=== PATIENT | male | born 1970 | race Caucasian/White ===

== ENCOUNTER → 2019-05-23 13:26 | Outpatient (CLI) | payer BC, SELFPAY ==
--- NOTE | 2019-05-23 | DI.RAD.S_ITS ---
PROCEDURE: XR KNEE LT 3V INDICATIONS: Other chronic pain TECHNIQUE: 3 views of the knee were acquired. COMPARISON: None. FINDINGS: Bones: No fractures or dislocations. No suspicious bony lesions. Mild knee joint effusion. Soft tissues: No joint effusion. No suspicious soft tissue calcifications. IMPRESSION: Mild degenerative joint disease. Dictated by: Dario Real M.D. on 05/23/2019 at 15:08 Approved by: Dario Real M.D. on 05/23/2019 at 15:13
--- NOTE | 2019-05-23 | DI.RAD.S_ITS ---
PROCEDURE: XR HIP W PEL IF DONE LT 2V INDICATIONS: Other chronic pain TECHNIQUE: AP pelvis with lateral view(s) of the left hip(s). COMPARISON: None. FINDINGS: Bones: No fractures or dislocations. Pelvic ring appears intact. No suspicious bony lesions. Severe left hip joint degeneration. There is deformity of the left femoral head. Soft tissues: The visualized bowel gas pattern is normal. No suspicious soft tissue calcifications. IMPRESSION: 1. Severe degenerative joint disease of the left hip. 2. Deformity of left femoral head, suggesting osteonecrosis. MRI may be helpful for further evaluation Dictated by: Dario Real M.D. on 05/23/2019 at 14:59 Approved by: Dario Real M.D. on 05/23/2019 at 15:08
--- NOTE | 2019-05-23 | DI.RAD.S_ITS ---
PROCEDURE: XR LUMBAR SPINE 2-3V INDICATIONS: Other chronic pain TECHNIQUE: 3 views of the lumbar spine were acquired. COMPARISON: None. FINDINGS: Bones: 5 [id number] vertebrae are present. There is normal bony alignment. No vertebral body compression fractures. No suspicious bony lesions. There is degenerative disc disease, moderate at T11-T12 and T12-L1, and mild at T9-T10, T10-T11, L1-L2, L2-L3, L3-L4 and L4-L5. There is moderate facet arthropathy at L4-L5 and L5-S1. Soft tissues: Overlying bowel gas pattern is normal. No suspicious soft tissue calcifications. IMPRESSION: Degenerative disc and facet disease as described. Dictated by: Dario Real M.D. on 05/23/2019 at 15:51 Approved by: Dario Real M.D. on 05/23/2019 at 15:55
== END ==
PROVIDERS: Visit Provider Family Medicine Addiction Medicine
DX: G89.29 Other chronic pain (principal); M17.12 Unilateral primary osteoarthritis, left knee
CPT/HCPCS: 72100; 73502; 73562

== ENCOUNTER → 2019-05-30 15:44 | Outpatient (CLI) | payer BC, SELFPAY ==
--- NOTE | 2019-05-30 | DI.MRI.S_ITS ---
PROCEDURE: MR HIP LT WO CON INDICATIONS: Osteonecrosis, unspecified TECHNIQUE: Noncontrast coronal T1 spin echo and STIR through the bony pelvis. Coronal and axial T2 fast spin echo with fat saturation, sagittal T1 spin echo, and oblique axial T2 fast spin echo with fat saturation through the hip. COMPARISON: [facility], CR, XR HIP W PEL IF DONE LT 2V, 05/23/2019, 13:34. FINDINGS: Image quality: Excellent. Bones and joints: Bone marrow of the pelvic ring and proximal femurs show normal signal throughout except that the left femoral head and neck area. There is a characteristic defect within the subchondral cortex of the femoral head, articular surface, on the left. Sli these findings are associated with moderate right hip joint degenerative osteoarthritis, but without evidence of synchronous avascular necrosis on the right. ght offset due to mild impaction is present, best seen at the medial border of the area of avascular necrosis, depressed by approximately 1.5-2 mm. Reactive marrow space edema is present tracking into the intertrochanteric line from the subchondral femoral head. Additionally, a mild to moderate hip joint effusion is present with no definite significant sized intra-articular loose bodies. Note is made of a slight degree of edema in the overlying marrow space of the acetabulum. No acetabular fracture is present. No intraosseous lesions or fractures. There is moderate degenerative osteoarthritic joint space narrowing at the right hip joint. The visualized lower lumbar spine appears normally aligned. Tendons and ligaments: The gluteus medius and minimus tendons appear intact, without associated muscle atrophy. The nearby proximal iliotibial band also appears intact. The iliopsoas tendon appears intact, without adjacent bursal fluid collections or evidence for impingement syndrome. The origin of the hamstring tendon is intact at the ischial tuberosity, as well as the associated sacrotuberous ligament. The straight and reflected heads of the rectus femoris muscle origin appear intact, as well as the conjoint tendon. The ligamentum teres appears intact where visualized. Labrum and cartilage: The acetabular labrum appears intact in the absence of intra-articular contrast. Cartilage surface of the femoral head appears of normal thickness. The alpha angle of the femur is within normal limits at less than 55 degrees. Soft tissues: Visualized muscles demonstrate normal bulk and internal signal. Quadratus femoris muscle demonstrates no internal edema to suggest ischiofemoral impingement. The proximal sciatic neurovascular bundle appears normal adjacent to the hamstring tendons. No free pelvic fluid. Bladder wall thickness is normal. Genitourinary structures and bowel loops appear normal where visualized. IMPRESSION: Avascular necrosis pattern left femoral head with slight impaction fracture along the margins of the area of avascular necrosis on the left. The femoral neck or intertrochanteric fracture is not present, trauma is not suspected. Reactive marrow edema as discussed, reactive left hip joint effusion. Dictated by: Khris Clay M.D. on 05/30/2019 at 16:39 Approved by: Khris Clay M.D. on 05/30/2019 at 16:44
== END ==
DX: M87.852 Other osteonecrosis, left femur (principal); M84.452A Pathological fracture, left femur, initial encounter for fracture; M16.11 Unilateral primary osteoarthritis, right hip
CPT/HCPCS: 73721

== ENCOUNTER → 2019-06-16 08:17 | Outpatient (CLI) | payer BC, SELFPAY ==
[2019-06-16 08:45] LABS: Bacteria Urine None Seen
[2019-06-16 08:56] LABS: Add Manual Diff / Slide Review NO; Basophils Absolute Auto 100 /uL (0-100); Basophils Percent Auto 1.4 % (0-2); Eosinophils Absolute Auto 200 /uL (0-450); Eosinophils Percent Auto 3.7 % (2-4); Hematocrit 40.7 % (41-53); Lymphocytes Absolute Auto 2200 /uL (1100-4500); Lymphocytes Percent Auto 34.8 % (25-40); Mean Corpuscular HGB Conc 34.4 % (30-36); Mean Corpuscular Hemoglobin 30.2 PG (26-34); Mean Corpuscular Volume 87.9 fL (80-100); Monocytes Absolute Auto 600 /uL (0-900); Monocytes Percent Auto 9.8 % (3-14); Neutrophils Absolute Auto 3100 /uL (1500-7000); Neutrophils Percent Auto 50.3 % (50-75); Platelet Count 236 X10^3/uL (150-400); Red Blood Cell Count 4.64 X10^6/uL (4.5-5.9); Red Cell Distribution Width 13.8 % (11.6-14.8); White Blood Cell Count 6.2 X10^3/uL (4.5-11.0)
[2019-06-16 09:07] LABS: BUN Creatinine Ratio 21.8 (6-22); Blood Urea Nitrogen 17 mg/dL (9-20); Calcium 9.8 mg/dL (8.4-10.2); Carbon Dioxide 26 mmol/L (22-32); Chloride 104 mmol/L (98-107); Estimated Glomerular Filt Rate > 60.0 mL/min (>60); Glucose 114 mg/dL (70-100); HEMOLYSIS < 15 (0-50); Sodium 139 mmol/L (137-145)
[2019-06-16 09:42] LABS: Appearance Urine UA CLEAR; Bilirubin Urine UA NEGATIVE (NEGATIVE); Color Urine UA YELLOW; Glucose Urine UA NEGATIVE (Negative); Ketones Urine UA NEGATIVE (NEGATIVE); Leukocyte Esterase Urine UA NEGATIVE (NEGATIVE); Nitrite Urine UA NEGATIVE (Negative); Occult Blood Urine UA NEGATIVE (Negative); Protein Urine UA NEGATIVE (Negative); Specific Gravity Urine UA 1.025 (1.000-1.035); Urobilinogen Urine UA 0.2 E.U./dL (0.2)
[2019-06-16 09:56] LABS: RBC Urine 0-1/HPF (0-5/HPF); WBC Urine 0-1/HPF (0-5/HPF)
[2019-06-16 09:57] LABS: Culture Indicated Urine Cult Not Indicated
== END ==
PROVIDERS: Referring Provider Orthopaedic Surgery; Visit Provider Orthopaedic Surgery
DX: Z01.818 Encounter for other preprocedural examination (principal); Z01.812 Encounter for preprocedural laboratory examination; R73.9 Hyperglycemia, unspecified; N39.0 Urinary tract infection, site not specified
CPT/HCPCS: 36415; 80048; 81001; 83036; 85025; 93005

== ENCOUNTER → 2019-07-01 10:56 | Outpatient (CLI) | payer BC, SELFPAY ==
[2019-07-02 11:04] LABS: COVID19 Sendout NOT DETECTED
== END ==
PROVIDERS: Visit Provider Registered Nurse
DX: Z01.818 Encounter for other preprocedural examination (principal)
CPT/HCPCS: 87635

== ENCOUNTER 2019-07-04 06:40 | Inpatient (IN) | payer BC, SELFPAY ==
[2019-06-27 09:21] VITALS: BMI 27.3
[2019-07-04] VITALS (17 sets, daily range): BP systolic 110–152; BP diastolic 55–88; PULSE 67–85; RESP 10–20; TEMP 36.2–37.5; O2SAT 95–100; BMI 27.3
--- NOTE | 2019-07-04 | DI.RAD.S_ITS ---
PROCEDURE: XR HIP W PEL IF DONE LT 2V INDICATIONS: LEFT TOTAL HIP ARTHROPLASTY TECHNIQUE: 4 fluoroscopic operative view(s) of the hip acquired. COMPARISON: [facility], , XR HIP W PEL IF DONE LT 2V, 05/23/2019, 13:34. FINDINGS: 4 fluoroscopic images during total left hip arthroplasty demonstrate satisfactory placement with no radiographic evidence of complications. IMPRESSION: Fluoroscopic imaging utilized during total left hip arthroplasty. Dictated by: Stew Peters M.D. on 07/04/2019 at 10:59 Approved by: Stew Peters M.D. on 07/04/2019 at 11:01
--- NOTE | 2019-07-04 | DI.RAD.S_ITS ---
PROCEDURE: XR HIP W PEL IF DONE LT 2V INDICATIONS: POST-OP LEFT HIP TECHNIQUE: AP pelvis and lateral view of the left hip acquired. COMPARISON: [facility], YANG, XR HIP W PEL IF DONE LT 2V, 07/04/2019, 9:27. [facility], CR, XR HIP W PEL IF DONE LT 2V, 05/23/2019, 13:34. FINDINGS: Bones: Patient is status post left total hip arthroplasty, with hardware components in expected positions. The hip joint appears congruent. The visualized bony structures appear intact. Moderate right hip joint space narrowing. Question of cam deformity. Soft tissues: Overlying postoperative changes are noted. No suspicious soft tissue densities. IMPRESSION: Satisfactory appearance of the left total hip arthroplasty. Dictated by: Fredy Eduardo M.D. on 07/04/2019 at 12:00 Approved by: Fredy Eduardo M.D. on 07/04/2019 at 12:02
[2019-07-04] MEDS: LACTATED RINGERS 1,000 ML 42 ML IV ×2 (07:20→10:09)
[2019-07-04] MEDS: VANCOMYCIN 1,000 MG/200 ML PIGGYBACK 200 MG IV (07:30)
--- NOTE | 2019-07-04 07:37 | PM.PREOP ---
Pre-operative Note COVID-19 COVID-19 status: Negative Result date/Date tested (Pos, Neg/Pending): 07/02/19 Interval Note History & Physical reviewed/Exam performed by Physician: Yes Changes to H&P: No ASA Class (for procedural sedation): I
--- NOTE | 2019-07-04 07:38 | PM.OP.1 ---
Operative Date/Time/Diagnoses Date of procedure: 07/04/19 Time of procedure: 07:57 Pre-op diagnosis: left hip avascular necrosis Post-op diagnosis: same Procedure & Clinicians Procedure: Left total hip arthroplasty anterior approach Same procedure as scheduled: Yes Indications: The patient has had progressively worsening left hip pain with radiographic changes consistent with arthritis. Non-operative management has failed and the patient has requested total hip replacement. The risks, benefits and alternatives to surgery were discussed with the patient prior to proceeding. Risks discussed included, but were not limited to, failure to relieve pain, leg length discrepancy, dislocation, stiffness, infection, nerve damage, deep venous thrombosis, pulmonary embolism, stroke, coma, heart attack, permanent paralysis and , as well as the potential need for eventual revision of the prosthetic. Surgeon: Khadijah Garcia Clinical Research Director: Cordell Hou Anesthesia Type: General and Spinal Operative Notes Findings: Severe left hip AVN, good quality bone Closure Type: primary Specimen(s): none sent Prosthetic devices, grafts, tissues, transplants, or devices: [employer] R3 56 mm cup, 36+ 0 head, 20 mm screw, size 7 high offset anthology Estimated Blood Loss (mL): 250 Blood products transfused: none Procedure in detail: The patient was brought to the operating room. Patient was carefully positioned in the supine position. Time-out was performed and antibiotics were given. Anesthesia was induced. He was positioned in the on the table in order to allow hyperextension of the hip. The left lower extremity was prepped and draped in a standard sterile fashion. An anterior left hip incision was made 1 fingerbreadth lateral to the anterior superior iliac spine and extended distally towards the greater trochanter. Dissection was carried out through skin and subcutaneous tissues. The skin and subcutaneous tissues were carefully injected with Lidocaine with epi. Superficial hemostasis was achieved. The fascia over the tensor fascia sosa was defined and incised with a knife. Two Allis clamps were used to grasp the fascia. Tensor fascia sosa was retracted laterally. A gelpi retractor was placed. Dissection was carried out down along the neck. The circumflex vessels were carefully identified and cauterized with the Aqua Mantis. There was good visualization of the femoral neck. A Cobra was placed superior to the neck and the gluteus fibers were carefully stripped from that superior aspect of the capsule. A 2nd retractor was placed along the inferior aspect of the neck. The rectus insertion along the capsule was partially released. A 3rd retractor that was then gently placed over the rim of the acetabulum under the rectus. Capsule was carefully incised and released from the intertrochanteric line circumferentially superior to the mid sagittal line and inferiorly to the mid sagittal line until the lesser trochanter was palpable. A tag stitch was placed both in the superior and inferior limb of the capsular insertion. Along the acetabulum capsule was also released up to the mid sagittal 12:00 position. A portion of the labrum was resected. A saw was used to perform an osteotomy at the level of the intertrochanteric line and the junction of the superior femoral neck leaving approximately 1 finger breath of residual inferior neck above the lesser trochanter. A 2nd cut was made along the femoral neck at the base of the head and a napkin ring of neck was removed. Corkscrew was placed in the femoral head and the head was removed without difficulty. Retractors were then repositioned around the acetabulum. Residual labrum was resected and additional osteophytes were removed. A reamer that was 4 mm below the templated size was placed by hand in the acetabulum and it was reamed to centralize the acetabulum. It was then reamed up to 2 under the templated size and fluoroscopy was brought in to confirm the position of the reaming and depth of reaming. I reamed 1 under the anticipated size and touched the rim with line to line reaming. A trial cup was placed and noted that it was appropriately sized and fluoroscopy confirmed position and depth. The component was open and inserted without difficulty fluoroscopic imaging was used to confirm that the cup had been adequately seated and was well positioned. A single screw was used to further stabilize the cup. Neutral poly liner was placed. The cup was tested and noted to be stable. Attention was then directed to the femur. The femur was gently hyperextended additional capsular release was performed as needed in order to allow adequate visualization of the proximal femur with elevation of the femur. Patient was placed in a hyperextended slightly adducted position with maximum external rotation. Box osteotome was used to check for any residual neck as well as sclerotic bone along the trochanter. [place] pepper was placed in the femur. Additional broaching was performed. Canal finder was used to determine the alignment of the canal and position. Size 1 broach was placed. The canal was then appropriately broached up to the templated size as long as there was adequate stability of the broach and serial advancement of the broach without excessive impingement. Specific attention was directed at avoiding varus attempting to direct the distal aspect of the broach more anteriorly and avoiding excessive anteversion. Trial reduction showed acceptable range of motion, good stability, no posterior impingement, sabianist of leg length and appropriate lateral shuck. Marcaine and Exparel were injected.. The stem was placed without difficulty. Repeat trial reduction and x-ray showed acceptable overall position, length, and no evidence of the femoral fracture. Final head was placed. Wound was meticulously irrigated with normal saline. The hip was reduced and additional Exparel and Marcaine were injected. The capsule was closed with interrupted nonabsorbable sutures. The fascia of the tensor was closed with interrupted and running Vicryl. No drain was placed. Any tensor fascia sosa muscle that appeared to be contused or injured which was a minimal amount was carefully resected. Capsule around the tensor was injected with Exparel and Marcaine. The skin was closed with barbed stitches for the subcutaneous tissue and skin. We also used surgical glue. The wound was dressed sterilely. Brief Betadine soak was also used and was meticulously irrigated with normal saline. Patient was transferred to recovery room in satisfactory condition. Complications: none Post-operative Condition: stable Disposition: Acute Care Plan for aftercare: The patient will be maintained on a standard total hip replacement protocol with weight bearing as tolerated and anterior hip precautions. The patient will receive Aspirin and sequential compression devices for DVT prophylaxis. The patient will be discharged home when safe for the home environment.
[2019-07-04] MEDS: CEFAZOLIN 2 GM/100 ML FROZ.PIGGY IV ×3 (08:23→23:57)
--- NOTE | 2019-07-04 08:34 | SUR.OPER ---
Supine on padded Grayson table with bilateral legs secured in padded positioning boots and suspended in positioning spars, operative leg in traction per surgeon. Head on one pillow. Arm on non-operative side secured on padded armboard <90 degrees abduction. Arm on operative side padded and resting across chest then secured with tape over sheet. Padded perineal post in place per surgeon.
[2019-07-04] MEDS: BUPIVACAINE 0.25% W/ EPI 30 ML VIAL 60 ML INJ (08:42)
[2019-07-04] MEDS: BUPIVACAINE LIPOSOME 266 MG/20 ML VIAL INJ (08:42)
[2019-07-04] MEDS: SODIUM CHLORIDE IRRIG SOLUTION 250 ML, POVIDONE-IODINE SPONGE STICKS 1 APPLIC IRR (08:45)
--- NOTE | 2019-07-04 09:33 | PC.NURSE ---
Day shift: Pt not on AC unit at this time.
[2019-07-04] MEDS: fentaNYL 100 MCG/2 ML INJ IV ×2 (11:50→11:55)
--- NOTE | 2019-07-04 12:08 | SUR.PHASEI ---
Addendum entered by Reinier Hutchinson R.N. 07/04/19 12:09: Original Note: pt comfortable, tolerating jyothi deanne, denies any n/v. states pain is tolerable at a 2/10, able to wiggle toes, 2+ palpable pedal pule=
--- NOTE | 2019-07-04 12:12 | SUR.PHASEI ---
report to Alexis MACHUCA.
--- NOTE | 2019-07-04 12:32 | PC.NURSE ---
Day shift: Pt on AC unit at approx 1230 from PACU. He is A&Ox3. Pain 2/. Left hip dressing is CDI. Oriented to room and call light. Agrees to not get OOB w/o help from staff. PPP. Good cap refill. Sensation returning but can't wiggle toes at this time.
[2019-07-04] MEDS: IBUPROFEN 400 MG TABLET PO ×3 (13:03→20:00)
[2019-07-04] MEDS: LACTATED RINGERS 1,000 ML 125 ML IV ×2 (13:17→22:48)
[2019-07-04] MEDS: ACETAMINOPHEN 325 MG TABLET 650 MG PO ×2 (14:37→20:00)
--- NOTE | 2019-07-04 15:01 | PT-IP ANOTE ---
checked on pt 1322 and pt eating lunch and just came up to the acute care floor ~ 1 hour ago after surgery. pt stated that he cannot move and feel his LLE. asked pt regarding PLOF and home set up and informed pt that PT will checked on pt later on today. checked on pt again 1500. ortho doctor just came out of the pt's room and stated that pt still has the effect of the spinal. pt stated that he is still not able to move leg and feel it. pt was given post-op folder earlier on and advised to read on it. pt agreed. will check on pt tomorrow.
[2019-07-04] MEDS: OXYCODONE IR 5 MG TABLET PO ×3 (16:06→22:48)
[2019-07-04] MEDS: PREGABALIN 75 MG CAPSULE 150 MG PO (20:01)
[2019-07-04] MEDS: DOCUSATE 100 MG CAPSULE PO (20:01)
[2019-07-04] MEDS: ASPIRIN EC 81 MG TABLET PO (20:01)
[2019-07-05] VITALS: BP 112/55; PULSE 80; RESP 18; TEMP 36.8; O2SAT 94
[2019-07-05] MEDS: IBUPROFEN 400 MG TABLET PO ×4 (01:07→12:18)
[2019-07-05] MEDS: OXYCODONE IR 5 MG TABLET PO ×3 (03:53→10:47)
[2019-07-05 04:00] VITALS: BP 127/65; PULSE 76; RESP 18; TEMP 36.7; O2SAT 94
[2019-07-05 07:45] VITALS: BP 132/67; PULSE 82; RESP 16; TEMP 36.9; O2SAT 95
[2019-07-05 08:05] VITALS: PULSE 77; RESP 16; O2SAT 97
[2019-07-05 08:25] LABS: Hematocrit 31.5 % (41-53); Hemoglobin 10.7 g/dL (13.5-17.5)
[2019-07-05] MEDS: PREGABALIN 75 MG CAPSULE 150 MG PO (09:16)
[2019-07-05] MEDS: DOCUSATE 100 MG CAPSULE PO (09:16)
[2019-07-05] MEDS: CHOLECALCIFEROL (VITAMIN D3) 5,000 UNIT TABLET 5000 UNIT PO (09:16)
[2019-07-05] MEDS: ASPIRIN EC 81 MG TABLET PO (09:16)
[2019-07-05] MEDS: ACETAMINOPHEN 325 MG TABLET 650 MG PO (09:17)
[2019-07-05] MEDS: VALSARTAN 80 MG TABLET 320 MG PO (09:17)
[2019-07-05] MEDS: SODIUM CHLORIDE 0.9% FLUSH 10 ML IV (09:18)
--- NOTE | 2019-07-05 09:48 | PT.IIE ---
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) Surgery Performed Operation Date: 07/04/19 07:45 Actual Procedures p Total Hip Arthroplasty/Anterior Approach(Left) - Khadijah Garcia MD Surgical History (Last Updated 06/27/19 @ 09:37 by Cassie Hong, SVEN) Hx of hernia repair (Acute 2013) Hx of rhinoplasty (Acute 2006) Hx of tonsillectomy (Acute 1974) S/P LASIK surgery of both eyes (Acute) Medical History (Last Updated 06/27/19 @ 09:37 by Cassie Hong RN) Depression (Acute) Elevated cholesterol (Acute) Heartburn (Acute) HTN (hypertension) (Acute) Nerve pain (Acute 2007) Osteoarthritis (Acute) Pneumonia (Acute 2006) Sleep apnea (Acute) Physical Therapy Inpatient Evaluation/Re-Eval M1 PT/OT-IP Prior Functional Status Start: 07/04/19 15:01 Freq: NEEDED Status: Active Protocol: Document 07/05/19 09:48 AB (Rec: 07/05/19 12:49 AB [id number]) Medical Review Prior Functional Status Medical History Reviewed Yes Communication able to make needs known Mobility and Gait pt stated that he is independent with all mobilities and ambulation without AD indoors but uses 1 crutch for outdoor mobility Social History Household Members none Living Arrangements House Number of Floors (Floors) One Floor Number of Stairs To Enter/Railing? 1 step to enter Home Environment Standard Height Toilet,Walk in Shower,Built-In Shower Seat Home Equipment Front Wheel Walker,Crutches, Hand Held Shower Additional Social History Comment pt stated that he has family and friends to stay with him for 3 weeks M2 PT-IP Current Condition Start: 07/04/19 15:01 Freq: NEEDED Status: Active Protocol: Document 07/05/19 09:48 AB (Rec: 07/05/19 12:49 AB [id number]) Physical Therapy Current Condition Current Condition Evaluation Date 07/05/19 Treatment Diagnosis s/p L PEARL anterior approach; difficulty in walking Onset Date 07/04/19 Precautions Anterior Hip Precautions No Hip Extension,No Hip External Rotation Weight Bearing Status Weight Bearing Status Weight Bear as Tolerated Allowed Weight Bearing Amount (enter % WBAT LLE or #) (%) M3 PT-IP Subjective Start: 07/04/19 15:01 Freq: NEEDED Status: Active Protocol: Document 07/05/19 09:48 AB (Rec: 07/05/19 12:49 [id number]) Subjective Physical Therapy Visit Type Type Initial Evaluation Visit Start Time 09:48 Visit Stop Time 10:29 Total Visit Minutes 41 Number of COMMERCIAL ADMINISTRATOR Visits 0 Therapy Pain Assessment Pain When Pain Assessed At Rest Pain Present Pain Present Pain Reported Location Left Hip Intensity 3 Scale Used Numeric (1 - 10) M4 PT-IP Mobility and Gait Start: 07/04/19 15:01 Freq: NEEDED Status: Active Protocol: Document 07/05/19 09:48 AB (Rec: 07/05/19 12:49 [id number]) PT-Bed Mobility Assessment Supine to Sit Supine to Sit Standby Assistance Sit to Supine Sit to Supine Standby Assistance Scooting Scooting to Edge of Bed Standby Assistance PT-Transfer Assessment Sit to and From Stand Sit to and from Stand Standby Assistance Equipment Transfer Assistive Device Gait Belt,Front Wheeled Walker Orthotic/Prosthetic Devices or Brace: No Transfers Transfer Destination Chair Transfer Technique ambulated using FWW Transfer Ability Level of Assist Standby Assistance,Contact Guard Assistance Comments Mobility Comments pt educated on hip precautions . completed supine to sit SBA. required increase time to complete. completed sit to stand CGA. ambulated towards the chair CGA and cues for L quad activation. pt ambulated in hallway ~ 125 ft using FWW SBA and cues. completed stair climbing. assisted back to his room. agreed to stay up on chair. set up on chair. call light and table placed within reach. Gait Assessment Gait Gait Assistance Required: Standby Assistance,Contact Guard Assist Distance (Feet) 125 Able to Maintain Weight Bearing Status Yes During Gait Assistive Devices Assistive Device Gait Belt,Tripod Cane/Hurry Cane,Front Wheeled Walker Gait Deviations General Gait Pattern Antalgic,Decreased Stride Length,Decreased Feet Clearance Factors Limiting Gait Function Factors Limiting Gait Function Decreased Activity Tolerance, Decreased Strength,Limited Range of Motion,Pain,Poor Balance Comments Gait Comments pls refer to mobility section for details Stair Climbing Assessment Evaluation Level of Assist On Stairs Contact Guard Assistance,1 Person Assistance Devices Stair Climbing Assistive Devices Front Wheel Walker Technique/Endurance Stair Climbing Direction Ascend and Descend Stair Climbing Technique Step to Step Number of Steps Climbed 1 Query Text: Stair Climbing Set # Repetitions (reps) 2 Comments Stair Climbing Comments completed up/down platform step using FWW CGA. informed pt to have caregiver stabilize FWW during stair climbing and pt agreed. PT-Balance Assessment Sitting Balance and Reactions Static Sitting Balance Ability Good Dynamic Sitting Balance Ability Good Standing Balance and Reactions Static Standing Balance Ability Fair Dynamic Standing Balance Ability Fair Device Used FWW M5 PT-IP Objective Assessments Start: 07/04/19 15:01 Freq: NEEDED Status: Active Protocol: Document 07/05/19 09:48 AB (Rec: 07/05/19 12:49 [id number]) Orientation Orientation/Cognition Level of Alertness Alert Orientation Name,Age,Birthday,Month,Date, Year,Day of Week,Place, Situation Language Function Ability No Deficits Noted Safety Awareness Understands Safety Issues Memory Description Short Term Impaired Strength Lower Extremity Strength Assessment Left Impaired Hip 3-/5 Knee 3+/5 Coordination Assessment Gross Coordination Gross Coordination WNL Sensation Assessment Sensation Gross Sensation WNL Muscle Tone Muscle Tone WNL Yes M6 PT-IP Treatment Start: 07/04/19 15:01 Freq: NEEDED Status: Active Protocol: Document 07/05/19 09:48 AB (Rec: 07/05/19 12:49 [id number]) Physical Therapy Treatment Exercises Exercises Quad Sets,Heel Slides Education Education Provided Precautions,Weight Bearing Status,Post-Op Packet,Safety M7 PT-IP Assessment and Plan Start: 07/04/19 15:01 Freq: NEEDED Status: Active Protocol: Document 07/05/19 09:48 AB (Rec: 07/05/19 12:49 [id number]) PT Summary Assessment and Plan Potential Rehabilitation Potential Good Status of Condition at Evaluation Stable Summary Impairments Pain,ROM,Strength,Balance,Bed Mobility,Transfers,Gait, Activity Tolerance Assessment Summary pt requiring SBA with mobility and plans to go home today with family/friends to assist. Goals Bed Mobility Goal Independent Transfer Goal Independent,Front Wheeled Walker Gait Goal Independent,Front Wheel Walker Gait Distance 200 Other Goals up/down 1 step SBA using FWW Days to Meet Goals 3 Frequency of Treatment Frequency Of Treatment Twice a Day Treatment Plan Physical Therapy Treatment Plan Bed Mobility Training,Transfer Training,Gait Training, Therapeutic Exercise,Balance Retraining,Post Op Education, Discharge Planning,Hot or Cold Pack,Neuromuscular Re-ed, Coordination Retraining,Manual Therapy Recommendations To Nursing Amount of Assist Needed Standby Assistance Discharge Recommendations PT Discharge Recommendations Home with Assistance, Outpatient PT Transportation Needs at Discharge Private Vehicle
[2019-07-05 11:30] VITALS: BP 138/62; PULSE 81; RESP 18; TEMP 37.2; O2SAT 96
--- NOTE | 2019-07-05 13:19 | P.DS_ITS ---
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 He was admitted for a left total hip arthroplasty. He was taken to the operating room where he underwent a left total hip arthroplasty. He tolerated the procedure without difficulty. He had somewhat of a prolonged spinal and had initially some difficulty voiding. Discharge Providers Provider Date of admission: 07/04/19 06:40 Discharge Date: 07/05/19 Primary care physician: Laly Bauer Consults: 06/27/19 09:50 Consult to Respiratory Therapy Evaluate & Treat Comment: TALON-mild per pt, CPAP did not improve, doesn't use Physician Instructions: Evaluate and treat 07/04/19 07:36 Consult to Anesthesiology Routine Comment: Consulting Provider: Anesthesiologist Reason for consultation: Post operative pain managment 07/04/19 12:31 Consult to Discharge Planning Routine Comment: Consult to Physical Therapy Evaluate & Treat Comment: patient wants to go home today Physician Instructions: post op PEARL protocol Consult to Respiratory Therapy Evaluate & Treat Comment: Physician Instructions: Evaluate and treat Discharge provider: Khadijah Garcia MD Summary Hospital Course Discharge Diagnosis: Left total hip arthroplasty, AVN left hip Hospital Course: Patient was taken to operating room and underwent a left total hip arthroplasty. He tolerated the procedure well. He was transferred to the macias eventually was able to void spontaneously was evaluated by Physical therapy and was able to ambulate without significant difficulty. His pain was well controlled with pain medications. He was safe and stable for discharge. His physical examination showed his dressing to be intact minimal pain with gentle range of motion of the hip, no calf swelling leg lengths were symmetrical and he had minimal pain with range of motion in his left hip. He was stable for discharge and was discharged to home. Status at Discharge Cognitive/behavioral status at discharge: oriented Functional status at discharge: uses cane/walker Overall status at discharge: patient is back to baseline Time Spent with Patient Time spent: Less than 30 minutes Exam Vital Signs (past 8 hours): - 07/05/19 07:45 07/05/19 08:05 07/05/19 11:30 Temperature 98.4 F 99 F Pulse Rate 82 77 81 Respiratory Rate 16 16 18 Blood Pressure 132/67 138/62 Pulse Oximetry 95 97 96 Oxygen Delivery Method Room Air Oxygen Flow Rate 0 Objective Labs Result Diagrams: 07/05/19 08:10 Labs: Laboratory Results - last 24 hr 07/05/19 08:10 Hgb 10.7 L Hct 31.5 L Discharge Plan Discharge Plan Patient Disposition: Home Discharge orders & Medications Prescriptions: Continued hydrocodone-acetaminophen [[place]] 10-325 mg Tablet 2 tab PO BID PRN (Reason: Pain) RF: 0 alprazolam [Xanax] 0.25 mg Tablet 0.25 mg PO BEDTIME PRN (Reason: Sleep) RF: 0 valsartan [Diovan] 320 mg Tablet 320 mg PO DAILY RF: 0 buprenorphine HCl 8 mg Tablet, Sublingual 8 mg SUBLINGUAL DAILY PRN (Reason: Nerve pain) RF: 0 pregabalin [Lyrica] 150 mg Capsule 150 mg PO BID RF: 0 cholecalciferol (vitamin D3) [Vitamin D3] 125 mcg (5,000 unit) Tablet 125 mcg PO DAILY RF: 0 Follow up/Referrals: Laly Bauer [Primary Care Provider] - Discharge Health Status Multidrug resistant organism: No MDRO Diet/Activity/Treatments Diet: Diet as Tolerated Activity: Walk as tolerated. Full weight on the left leg. Cold/Heat Therapy: Use ice on year leg multiple times a day. Other treatments: Use baby aspirin 2 times a day to prevent blood clots. Skin/Wound/Dressing Care Skin care: Keep dressing on. Report to your healthcare provider any signs of infection, such as:: chills, fever, night sweats, increased pain, unusual drainage and unusual redness Dressing: Okay to shower with dressing on. Visit Report/Discharge Packet Instructions: DI for Hip Replacement Stand Alone Forms: Surgery Discharge Discharge Data Primary Care Provider: Laly Bauer Quality VTE Deep Vein Thrombosis/Pulmonary Embolism Present on Admission: No
--- NOTE | 2019-07-05 14:10 | PC.NURSE ---
Day shift: Pt left unit via WC with this writer producer. Pts friend taking him home. Paperwork signed and all questions answered. Mercedes ROSALES. Pt has all personal belongings. No new MD Scrips. Pt's pain has been managed well here at the hospital.
--- NOTE | 2019-07-05 14:14 | CM.IDA ---
Initial DCP Assessment Note: Pt is a 49 yo male, resident of [place], now POD#1 from hip surgery w/ Dr Garcia PCP: Laly Bauer Payer: JALEN King Reviewed chart, pt discussed in multidisciplinary rounds this morning. Therapy has cleared pt for return home w/family/friends to assist and pt has planned for home, DC order from [facility] has been initiated. 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 No needs identified from DC planning team P: DC home w/friends and family via pov this afternoon, close outpt f/u and outpt therapy WENCESLAO [employer]ples
== END 2019-07-05 14:11 | disposition home or self-care (01) | DRG 470 ==
PROVIDERS: Admitting Provider Orthopaedic Surgery; PCP Family Medicine Addiction Medicine; Referring Provider Family Medicine Addiction Medicine; Visit Provider Orthopaedic Surgery
PROC: 0SRB02Z Replacement of Left Hip Joint with Metal on Polyethylene Synthetic Substitute, Open Approach (ICD-10-PCS; CPT 27130; principal; 2019-07-04 07:45)
DX: M87.052 Idiopathic aseptic necrosis of left femur (principal); M16.7 Other unilateral secondary osteoarthritis of hip; F32.9 Major depressive disorder, single episode, unspecified; F41.9 Anxiety disorder, unspecified; Z87.891 Personal history of nicotine dependence
CPT/HCPCS: 36415; 73502; 76000; 85014; 85018; 94762; 97161; 97530; C1776; C9290; J0690; J1100; J1170; J2250; J2274; J2405; J2704; J3010

== ENCOUNTER → 2019-11-04 09:44 | Outpatient (CLI) | payer BC, SELFPAY ==
[2019-07-04 13:23] VITALS: BMI 27.3
[2019-11-05 12:43] LABS: COVID19 Sendout Not Detected (Not Detect)
== END ==
PROVIDERS: PCP Family Medicine Addiction Medicine; Visit Provider Physician Assistant
DX: Z11.59 Encounter for screening for other viral diseases (principal)
CPT/HCPCS: 87635

== ENCOUNTER 2019-11-07 06:26 | Inpatient (IN) | payer BC, SELFPAY ==
[2019-07-04 13:23] VITALS: BMI 27.3
[2019-11-06 07:45] VITALS: BMI 27.3
[2019-11-07] VITALS (14 sets, daily range): BP systolic 116–146; BP diastolic 59–121; PULSE 70–106; RESP 10–18; TEMP 36.6–37.7; O2SAT 95–98; BMI 22.6
--- NOTE | 2019-11-07 | DI.RAD.S_ITS ---
PROCEDURE: XR HIP W PEL IF DONE RT 2V INDICATIONS: PEARL RIGHT HIP TECHNIQUE: 6 operative images of the hip acquired. COMPARISON: [facility], CR, XR HIP W PEL IF DONE LT 2V, 07/04/2019, 11:27. FINDINGS: Operative imaging demonstrates performance of total right hip arthroplasty. There is no radiographic evidence of complications. IMPRESSION: Operative imaging utilized during total right hip arthroplasty. Dictated by: Stew Peters M.D. on 11/07/2019 at 10:57 Approved by: Stew Peters M.D. on 11/07/2019 at 10:59
--- NOTE | 2019-11-07 | DI.RAD.S_ITS ---
PROCEDURE: XR HIP W PEL IF DONE RT 2V INDICATIONS: POST-OP RIGHT PEARL TECHNIQUE: AP pelvis and lateral view of the right hip acquired. COMPARISON: [facility], CR, XR PELVIS WITH BILATERAL LATERAL HIPS, 10/16/2019, 11:07. [facility], CR, XR HIP W PEL IF DONE RT 2V, 11/07/2019, 10:01. FINDINGS: Bones: Patient is status post right hip arthroplasty, with hardware components in expected positions. The hip joint appears congruent. The visualized bony structures appear intact. Note is made of prior left hip arthroplasty. Soft tissues: Overlying postoperative changes are noted. No suspicious soft tissue densities. IMPRESSION: Left hip total arthroplasty with prosthesis in anatomic alignment. Dictated by: Dario Real M.D. on 11/07/2019 at 11:32 Approved by: Dario Real M.D. on 11/07/2019 at 11:33
[2019-11-07] MEDS: PREGABALIN 75 MG CAPSULE PO (06:49)
[2019-11-07] MEDS: ACETAMINOPHEN 325 MG TABLET 975 MG PO (06:49)
[2019-11-07] MEDS: LACTATED RINGERS 1,000 ML 42 ML IV ×2 (07:18→10:36)
[2019-11-07] MEDS: VANCOMYCIN 1,000 MG/200 ML PIGGYBACK 200 MG IV (07:19)
--- NOTE | 2019-11-07 07:26 | PM.PREOP ---
Pre-operative Note COVID-19 COVID-19 status: Negative Interval Note History & Physical reviewed/Exam performed by Physician: Yes Changes to H&P: No
--- NOTE | 2019-11-07 07:26 | PM.OP.1 ---
Operative Date/Time/Diagnoses Date of procedure: 11/07/19 Time of procedure: 07:56 Pre-op diagnosis: right hip AVN Post-op diagnosis: same Procedure & Clinicians Procedure: right total hip arthroplasty Same procedure as scheduled: Yes Indications: The patient has had progressively worsening right hip pain with radiographic changes consistent with arthritis. Non-operative management has failed and the patient has requested total hip replacement. The risks, benefits and alternatives to surgery were discussed with the patient prior to proceeding. Risks discussed included, but were not limited to, failure to relieve pain, leg length discrepancy, dislocation, stiffness, infection, nerve damage, deep venous thrombosis, pulmonary embolism, stroke, coma, heart attack, permanent paralysis and , as well as the potential need for eventual revision of the prosthetic. Surgeon: Khadijah Garcia Automobile Mechanic Apprentice: Thuan Higgins Anesthesia Type: General and Spinal Operative Notes Findings: Severe right hip avascular necrosis Closure Type: primary Specimen(s): none sent Prosthetic devices, grafts, tissues, transplants, or devices: R3 56 cup Garcia and Nephew, anthology size 6 high offset +0 head Oxinium, one 20 mm screw Estimated Blood Loss (mL): 250 Blood products transfused: none Procedure in detail: The patient was brought to the operating room. Patient was carefully positioned in the supine position. Time-out was performed and antibiotics were given. Anesthesia was induced. He was positioned in the on the table in order to allow hyperextension of the hip. The right lower extremity was prepped and draped in a standard sterile fashion. An anterior right hip incision was made 1 fingerbreadth lateral to the anterior superior iliac spine and extended distally towards the greater trochanter. Dissection was carried out through skin and subcutaneous tissues. The skin and subcutaneous tissues were carefully injected with Lidocaine with epi. Superficial hemostasis was achieved. The fascia over the tensor fascia sosa was defined and incised with a knife. Two Allis clamps were used to grasp the fascia. Tensor fascia sosa was retracted laterally. A gelpi retractor was placed. Dissection was carried out down along the neck. The circumflex vessels were carefully identified and cauterized with the Aqua Mantis. There was good visualization of the femoral neck. A Cobra was placed superior to the neck and the gluteus fibers were carefully stripped from that superior aspect of the capsule. A 2nd retractor was placed along the inferior aspect of the neck. The rectus insertion along the capsule was partially released. A 3rd retractor that was then gently placed over the rim of the acetabulum under the rectus. Capsule was carefully incised and released from the intertrochanteric line circumferentially superior to the mid sagittal line and inferiorly to the mid sagittal line until the lesser trochanter was palpable. A tag stitch was placed both in the superior and inferior limb of the capsular insertion. Along the acetabulum capsule was also released up to the mid sagittal 12:00 position. A portion of the labrum was resected. A saw was used to perform an osteotomy at the level of the intertrochanteric line and the junction of the superior femoral neck leaving approximately 1 finger breath of residual inferior neck above the lesser trochanter. A 2nd cut was made along the femoral neck at the base of the head and a napkin ring of neck was removed. Corkscrew was placed in the femoral head and the head was removed without difficulty. Retractors were then repositioned around the acetabulum. Residual labrum was resected and additional osteophytes were removed. A reamer that was 4 mm below the templated size was placed by hand in the acetabulum and it was reamed to centralize the acetabulum. It was then reamed up to 2 under the templated size and fluoroscopy was brought in to confirm the position of the reaming and depth of reaming. I reamed 1 under the anticipated size. A trial cup was placed and noted that it was appropriately sized and fluoroscopy confirmed position and depth. The component was open and inserted without difficulty fluoroscopic imaging was used to confirm that the cup had been adequately seated and was well positioned. There was further stabilized with a single screw. Neutral poly liner was placed. The cup was tested and noted to be stable. Attention was then directed to the femur. The femur was gently hyperextended additional capsular release was performed as needed in order to allow adequate visualization of the proximal femur with elevation of the femur. Patient was placed in a hyperextended slightly adducted position with maximum external rotation. Box osteotome was used to check for any residual neck as well as sclerotic bone along the trochanter. [place] pepper was placed in the femur. Additional broaching was performed. Canal finder was used to determine the alignment of the canal and position. Size 1 broach was placed. The canal was then appropriately broached up to the templated size as long as there was adequate stability of the broach and serial advancement of the broach without excessive impingement. Specific attention was directed at avoiding varus attempting to direct the distal aspect of the broach more anteriorly and avoiding excessive anteversion. Trial reduction showed acceptable range of motion, good stability, no posterior impingement, holiness of leg length and appropriate lateral shuck. I also hyperflexed the hip and checked that there was no impingement anteriorly and there was good stability with flexion, adduction and internal rotation. Marcaine and Exparel were injected. The stem was placed without difficulty. Repeat trial reduction and x-ray showed acceptable overall position, length, and no evidence of the femoral fracture. Final head was placed. Wound was meticulously irrigated with normal saline. The hip was reduced and additional Exparel and Marcaine were injected. The capsule was closed with interrupted nonabsorbable sutures. The fascia of the tensor was closed with interrupted and running Vicryl. No drain was placed. Any tensor fascia sosa muscle that appeared to be contused or injured which was a minimal amount was carefully resected. Capsule around the tensor was injected with Exparel and Marcaine. The skin was closed with barbed stitches for the subcutaneous tissue and skin. We also used surgical glue. The wound was dressed sterilely. Brief Betadine soak was also used and was meticulously irrigated with normal saline. Patient was transferred to recovery room in satisfactory condition. Complications: none Post-operative Condition: stable Disposition: Acute Care Plan for aftercare: The patient will be maintained on a standard total hip replacement protocol with weight bearing as tolerated and anterior hip precautions. The patient will receive Aspirin and sequential compression devices for DVT prophylaxis. The patient will be discharged home when safe for the home environment.
--- NOTE | 2019-11-07 07:31 | SUR.OPER ---
Supine on padded [place] table with bilateral legs secured in padded positioning boots and suspended in positioning spars, operative leg in traction per surgeon. Head on one pillow. Arm on non-operative side secured on padded armboard <90 degrees abduction. Arm on operative side padded and resting across chest then secured with tape over sheet. Padded perineal post in place per surgeon.
[2019-11-07] MEDS: CEFAZOLIN 2 GM/100 ML FROZ.PIGGY IV ×2 (08:02→16:32)
[2019-11-07] MEDS: BUPIVACAINE 0.25% W/ EPI 30 ML VIAL 60 ML INJ (08:21)
[2019-11-07] MEDS: BUPIVACAINE LIPOSOME 266 MG/20 ML VIAL INJ (08:22)
[2019-11-07] MEDS: TRANEXAMIC ACID 1,000 MG VIAL 2000 MG INJ ×2 (08:23→10:15)
[2019-11-07] MEDS: SODIUM CHLORIDE IRRIG SOLUTION 250 ML, POVIDONE-IODINE SPONGE STICKS 1 APPLIC IRR (09:22)
[2019-11-07] MEDS: BENZOCAINE/MENTHOL 1 LOZ PKT 1 EACH PO (11:23)
[2019-11-07] MEDS: LACTATED RINGERS 1,000 ML 125 ML IV ×2 (12:46→21:38)
[2019-11-07] MEDS: ACETAMINOPHEN 325 MG TABLET 650 MG PO ×2 (12:46→21:38)
[2019-11-07] MEDS: IBUPROFEN 400 MG TABLET PO ×3 (14:39→22:28)
--- NOTE | 2019-11-07 15:20 | PC.NURSE ---
Patient with aquacel dressing to his r.anterior leg. He has just been given ibuprofen and tylenol earlier which was helpful for discomfort. He has already been up with physical therapy and done stairs. He will most likely go home tomorrow. CMS wnl and ppx2. Appetite good, denies nausea.
--- NOTE | 2019-11-07 16:00 | PT.IIE ---
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) Surgery Performed Operation Date: 11/07/19 07:45 Actual Procedures p Total Hip Arthroplasty/Anterior Approach(Right) - Khadijah Garcia MD Surgical History (Last Updated 06/27/19 @ 09:37 by Cassie Hong RN) Hx of hernia repair (Acute 2013) Hx of rhinoplasty (Acute 2006) Hx of tonsillectomy (Acute 1974) S/P LASIK surgery of both eyes (Acute) Medical History (Last Updated 06/27/19 @ 09:37 by Cassie Hong RN) Depression (Acute) Elevated cholesterol (Acute) Heartburn (Acute) HTN (hypertension) (Acute) Nerve pain (Acute 2007) Osteoarthritis (Acute) Pneumonia (Acute 2006) Sleep apnea (Acute) Physical Therapy Inpatient Evaluation/Re-Eval M1 PT/OT-IP Prior Functional Status Start: 11/07/19 13:36 Freq: NEEDED Status: Active Protocol: Document 11/07/19 14:58 AW (Rec: 11/07/19 15:59 AW [id number]) Medical Review Prior Functional Status Medical History Reviewed Yes Communication WNL. No known deficits. Mobility and Gait Pt is independent with mobility but endorses occasional use of cane or crutch for community mobility. Pt had L PEARL with anterior approach in June 2019 and reports good result. Activities of Daily Living and IADL's IND Social History Household Members none Living Arrangements House Number of Floors (Floors) One Floor Number of Stairs To Enter/Railing? 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 He lives alone in [place] but plans to have a friend stay with him for one week following surgery. M2 PT-IP Current Condition Start: 11/07/19 13:36 Freq: NEEDED Status: Active Protocol: Document 11/07/19 14:58 AW (Rec: 11/07/19 15:59 AW [id number]) Physical Therapy Current Condition Current Condition Evaluation Date 11/07/19 Treatment Diagnosis R PEARL with anterior approach; difficulty in walking Onset Date 11/07/19 Precautions Anterior Hip Precautions No Hip Extension,No Hip External Rotation Weight Bearing Status Weight Bearing Status Weight Bear as Tolerated M3 PT-IP Subjective Start: 11/07/19 13:36 Freq: NEEDED Status: Active Protocol: Document 11/07/19 14:58 AW (Rec: 11/07/19 15:59 AW [id number]) Subjective Physical Therapy Visit Type Type Initial Evaluation Visit Start Time 14:34 Visit Stop Time 14:58 Total Visit Minutes 24 Physical Therapy Visit Comments Patient Comments I feel more confident this time and feel like I know what to expect. Patient Goals Discharge to home with assist and return to [facility] for outpatient rehab Therapy Pain Assessment Pain When Pain Assessed During Mobility Pain Present Pain Present Pain Reported Location right hip Scale Used 3/10 at rest; 5/10 with mobility Pain Management Techniques Apply Cold,Timing of Activity with Medications M4 PT-IP Mobility and Gait Start: 11/07/19 13:36 Freq: NEEDED Status: Active Protocol: Document 11/07/19 14:58 AW (Rec: 11/07/19 15:59 AW [id number]) PT-Bed Mobility Assessment Supine to Sit Supine to Sit Standby Assistance Scooting Scooting to Edge of Bed Standby Assistance Scooting Up and Down in Bed Standby Assistance PT-Transfer Assessment Sit to and From Stand Sit to and from Stand Standby Assistance,Use of Upper Extremities Equipment Transfer Assistive Device Gait Belt,Front Wheeled Walker Transfers Transfer Destination Chair Transfer Technique pt ambulated with FWW Transfer Ability Level of Assist Standby Assistance,Use of Upper Extremities Comments Mobility Comments After brief education/ reminders about anterior hip precautions, pt completed bed mobility SBA by long-sitting, scooting toward R side of bed, and then pivoting hips to dangle legs off EOB. He scooted toward EOB and completed sit to stand SBA using FWW. He was able to distribute his weight equally and to take marching steps in place without excessive weightbearing on upper extremities. He ambulated in the halls with step-to patterning using FWW SBA and completed stair climbing. PT assisted pt back to room where he transferred to the chair SBA. Pt was positioned there with call light and all needs in reach. He verbally agreed to use the call light for all mobility needs. Gait Assessment Gait Gait Assistance Required: Standby Assistance Distance (Feet) 160 Able to Maintain Weight Bearing Status Yes During Gait Assistive Devices Assistive Device Gait Belt,Front Wheeled Walker Gait Deviations General Gait Pattern Antalgic,Decreased Stride Length,Decreased Feet Clearance,Flexed Trunk,Step-to Gait Factors Limiting Gait Function Factors Limiting Gait Function Decreased Activity Tolerance, Decreased Strength,Limited Range of Motion,Pain,Poor Balance Comments Gait Comments See mobility comments for details. Stair Climbing Assessment Evaluation Level of Assist On Stairs Standby Assistance Devices Stair Climbing Assistive Devices Front Wheel Walker Technique/Endurance Stair Climbing Direction Ascend and Descend Stair Climbing Technique Step to Step Number of Steps Climbed 1 Query Text: Stair Climbing Set # Repetitions (reps) 2 Comments Stair Climbing Comments Pt completed platform step climbing with FWW SBA. No cues were required for patterning or execution. PT-Balance Assessment Sitting Balance and Reactions Static Sitting Balance Ability Normal Dynamic Sitting Balance Ability Normal Standing Balance and Reactions Static Standing Balance Ability Good Dynamic Standing Balance Ability Good Device Used FWW M5 PT-IP Objective Assessments Start: 11/07/19 13:36 Freq: NEEDED Status: Active Protocol: Document 11/07/19 14:58 AW (Rec: 11/07/19 15:59 AW [id number]) Orientation Orientation/Cognition Level of Alertness Alert Orientation Name,Day of Week,Place, Situation Language Function Ability No Deficits Noted Safety Awareness Understands Safety Issues Memory Description No Deficits Noted Gross Range of Motion Upper Extremity ROM Assessment Within Functional Limits Lower Extremity ROM Assessment Right Impaired Strength Upper Extremity Strength Assessment Within Functional Limits Lower Extremity Strength Assessment Right Impaired Comments Strength Comments BUE and LLE grossly 5/5 except hip 4+/5 Sensation Assessment Sensation Gross Sensation WNL M6 PT-IP Treatment Start: 11/07/19 13:36 Freq: NEEDED Status: Active Protocol: Document 11/07/19 14:58 AW (Rec: 11/07/19 15:59 AW [id number]) Physical Therapy Treatment Exercises Exercises Ankle Pumps,Gluteal Sets,Quad Sets,Heel Slides Education Education Provided Precautions,Weight Bearing Status,Post-Op Packet,Safety Other Treatments Other Treatment Performed Provided education on role of PT, plan of care, weightbearing status, anterior hip precautions, and safe use of FWW. M7 PT-IP Assessment and Plan Start: 11/07/19 13:36 Freq: NEEDED Status: Active Protocol: Document 11/07/19 14:58 AW (Rec: 11/07/19 15:59 AW [id number]) PT Summary Assessment and Plan Potential Rehabilitation Potential Good Status of Condition at Evaluation Stable Summary Impairments Pain,ROM,Strength,Balance,Bed Mobility,Transfers,Gait, Activity Tolerance Assessment Summary John is an active 49 yo with recent history of L PEARL and now seen for PT evaluation on POD0 following R PEARL with anterior approach. 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 On evaluation, he was familiar with anterior hip precautions and completed all mobility with FWW SBA. PT anticipates pt will be safe to discharge home with assist and outpatient PT once medically cleared. Goals Bed Mobility Goal Independent Transfer Goal Independent,Front Wheeled Walker Gait Goal Independent,Front Wheel Walker Gait Distance 200 Other Goals - up/down 1 step IND using FWW Days to Meet Goals 3 Frequency of Treatment Frequency Of Treatment Twice a Day Treatment Plan Physical Therapy Treatment Plan Bed Mobility Training,Transfer Training,Gait Training, Therapeutic Exercise,Balance Retraining,Post Op Education, Discharge Planning,Hot or Cold Pack,Neuromuscular Re-ed Other Recommendations and Next Treatment review precautions, gait and Focus stairs with FWW Recommendations To Nursing Amount of Assist Needed Standby Assistance Discharge Recommendations PT Discharge Recommendations Home with Assistance, Outpatient PT Transportation Needs at Discharge Private Vehicle
[2019-11-07] MEDS: OXYCODONE IR 5 MG TABLET PO (19:41)
[2019-11-07] MEDS: QUETIAPINE 25 MG TABLET PO (21:37)
[2019-11-07] MEDS: DOCUSATE 100 MG CAPSULE PO (21:37)
[2019-11-07] MEDS: ASPIRIN EC 81 MG TABLET PO (21:38)
[2019-11-07] MEDS: OXYCODONE IR 5 MG TABLET 10 MG PO (22:28)
[2019-11-08] VITALS: BP 144/77; PULSE 76; RESP 16; TEMP 36.9; O2SAT 96
[2019-11-08] MEDS: CEFAZOLIN 2 GM/100 ML FROZ.PIGGY IV (00:01)
[2019-11-08] MEDS: ALPRAZolam 0.25 MG TABLET PO (00:01)
[2019-11-08] MEDS: IBUPROFEN 400 MG TABLET PO ×3 (00:39→10:28)
[2019-11-08 04:41] VITALS: BP 143/79; PULSE 71; RESP 16; TEMP 36.1; O2SAT 98
[2019-11-08] MEDS: OXYCODONE IR 5 MG TABLET 10 MG PO ×2 (04:42→08:01)
[2019-11-08 06:09] LABS: Hematocrit 32.9 % (41-53)
--- NOTE | 2019-11-08 07:29 | PM.PN.1 ---
Subjective Subjective Date Patient Seen: 11/08/19 Time Patient Seen: 07:29 Interval history: Patient is POD#1 s/p right PEARL with Dr. Garcia. He is doing well postoperatively. Pain is well controlled. He has mobilize with PT and completed stair training. Some urinary retnetion overnight requiring straight cath but has voided 200ml since. No chest pain, shortness of breath, nausea, vomiting, or calf pain. Exam Vital Signs (past 8 hours): - 11/08/19 00:00 11/08/19 04:41 Temperature 98.5 F 97.0 F L Pulse Rate 76 71 Respiratory Rate 16 16 Blood Pressure 144/77 H 143/79 H Pulse Oximetry 96 98 Oxygen Delivery Method Room Air Oxygen Flow Rate 0 Narrative Exam Narrative: 49 year old male resting in bed, AAOx3. Dressing in place over right hip is CDI. Patient able to perform straight leg raise. Calves soft, nontender bilaterally. Objective Labs Result Diagrams: 11/08/19 05:53 Labs: Laboratory Results - last 24 hr 11/08/19 05:53 Hgb 11.0 L Hct 32.9 L Assessment & Plan Assessment & Plan narrative: Patient doing well postoperatively. ASA 81mg BID for DVT prophylaxis. Continue to work with PT, WBAT. Plan is to discharge to home later today.
[2019-11-08 07:30] VITALS: BP 127/76; PULSE 66; RESP 16; TEMP 36.5; O2SAT 98
[2019-11-08] MEDS: ACETAMINOPHEN 325 MG TABLET 650 MG PO (07:58)
[2019-11-08] MEDS: DOCUSATE 100 MG CAPSULE PO (07:58)
[2019-11-08] MEDS: VALSARTAN 80 MG TABLET 320 MG PO (07:59)
[2019-11-08] MEDS: ASPIRIN EC 81 MG TABLET PO (07:59)
[2019-11-08] MEDS: CHOLECALCIFEROL (VITAMIN D3) 5,000 UNIT TABLET 5000 UNIT PO (07:59)
--- NOTE | 2019-11-08 11:18 | PT.IPTN ---
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) Surgery Performed Operation Date: 11/07/19 07:45 Actual Procedures p Total Hip Arthroplasty/Anterior Approach(Right) - Khadijah Garcia MD Physical Therapy Treatment Note M2 PT-IP Current Condition Start: 11/07/19 13:36 Freq: NEEDED Status: Active Protocol: Document 11/07/19 14:58 AW (Rec: 11/07/19 15:59 AW [id number]) Physical Therapy Current Condition Current Condition Evaluation Date 11/07/19 Treatment Diagnosis R PEARL with anterior approach; difficulty in walking Onset Date 11/07/19 Precautions Anterior Hip Precautions No Hip Extension,No Hip External Rotation Weight Bearing Status Weight Bearing Status Weight Bear as Tolerated M3 PT-IP Subjective Start: 11/07/19 13:36 Freq: NEEDED Status: Active Protocol: Document 11/08/19 11:12 HH (Rec: 11/08/19 11:18 HH [id number]) Subjective Physical Therapy Visit Type Type Treatment Note Visit Start Time 09:05 Visit Stop Time 09:25 Total Visit Minutes 20 Physical Therapy Visit Comments Patient Comments Im ready to walk Therapy Pain Assessment Pain When Pain Assessed During Mobility Pain Present Pain Present Pain Reported Location right hip Scale Used 3/10 at rest; 5/10 with mobility Pain Management Techniques Apply Cold,Timing of Activity with Medications M4 PT-IP Mobility and Gait Start: 11/07/19 13:36 Freq: NEEDED Status: Active Protocol: Document 11/08/19 11:12 HH (Rec: 11/08/19 11:18 [email or web address]) PT-Bed Mobility Assessment Supine to Sit Supine to Sit Standby Assistance Scooting Scooting to Edge of Bed Standby Assistance Scooting Up and Down in Bed Standby Assistance PT-Transfer Assessment Sit to and From Stand Sit to and from Stand Standby Assistance,Use of Upper Extremities Equipment Transfer Assistive Device Gait Belt,Front Wheeled Walker Transfers Transfer Destination Chair Transfer Technique pt ambulated with FWW Transfer Ability Level of Assist Standby Assistance,Use of Upper Extremities Comments Mobility Comments Pt completed supine to long sit initially followed by pivoting his R LE to R EOB slowly. C/o stiffness at first . He then stood up at bedside with FWW and proceed to amb with PT .Pt completed half of the AC unit with FWW SBA. However, he did show antalgic gait and WB his bodyweight mostly on UEs and LLE d/t pain . Pt did report decrease in stiffness after. He returned to bedroom chair after with safe stand pivot transfer and proper use of chair armrests to descend. call light placed within reach. Gait Assessment Gait Gait Assistance Required: Standby Assistance Distance (Feet) 350 Able to Maintain Weight Bearing Status Yes During Gait Assistive Devices Assistive Device Gait Belt,Front Wheeled Walker Gait Deviations General Gait Pattern Antalgic,Decreased Stride Length,Decreased Feet Clearance,Flexed Trunk,Step-to Gait Factors Limiting Gait Function Factors Limiting Gait Function Decreased Activity Tolerance, Decreased Strength,Limited Range of Motion,Pain,Poor Balance Comments Gait Comments See mobility comments for details. Stair Climbing Assessment Evaluation Level of Assist On Stairs Standby Assistance Devices Stair Climbing Assistive Devices Front Wheel Walker Technique/Endurance Stair Climbing Direction Ascend and Descend Stair Climbing Technique Step to Step Number of Steps Climbed 1 Stair Climbing Set # Repetitions (reps) 2 Comments Stair Climbing Comments Pt completed platform step climbing with FWW SBA. No cues were required for patterning or execution. PT-Balance Assessment Sitting Balance and Reactions Static Sitting Balance Ability Normal Dynamic Sitting Balance Ability Normal Standing Balance and Reactions Static Standing Balance Ability Good Dynamic Standing Balance Ability Good Device Used FWW M5 PT-IP Objective Assessments Start: 11/07/19 13:36 Freq: NEEDED Status: Active Protocol: Document 11/07/19 14:58 AW (Rec: 11/07/19 15:59 AW [id number]) Orientation Orientation/Cognition Level of Alertness Alert Orientation Name,Day of Week,Place, Situation Language Function Ability No Deficits Noted Safety Awareness Understands Safety Issues Memory Description No Deficits Noted Gross Range of Motion Upper Extremity ROM Assessment Within Functional Limits Lower Extremity ROM Assessment Right Impaired Strength Upper Extremity Strength Assessment Within Functional Limits Lower Extremity Strength Assessment Right Impaired Comments Strength Comments BUE and LLE grossly 5/5 except hip 4+/5 Sensation Assessment Sensation Gross Sensation WNL M6 PT-IP Treatment Start: 11/07/19 13:36 Freq: NEEDED Status: Active Protocol: Document 11/07/19 14:58 AW (Rec: 11/07/19 15:59 AW [id number]) Physical Therapy Treatment Exercises Exercises Ankle Pumps,Gluteal Sets,Quad Sets,Heel Slides Education Education Provided Precautions,Weight Bearing Status,Post-Op Packet,Safety Other Treatments Other Treatment Performed Provided education on role of PT, plan of care, weightbearing status, anterior hip precautions, and safe use of FWW. M7 PT-IP Assessment and Plan Start: 11/07/19 13:36 Freq: NEEDED Status: Active Protocol: Document 11/08/19 11:12 (Rec: 11/08/19 11:18 [email or web address]) PT Summary Assessment and Plan Potential Rehabilitation Potential Good Status of Condition at Evaluation Stable Summary Impairments Pain,ROM,Strength,Balance,Bed Mobility,Transfers,Gait, Activity Tolerance Progress Towards Goals Safe For Discharge Assessment Summary Pt improves with amb distance safely and good understanding of post op protocols. He also completed PF step climbing with SBA. He is safe to d/c at this point to home with friend assistance and outpatient PT. Frequency of Treatment Frequency Of Treatment Discharge Recommendations To Nursing Amount of Assist Needed Standby Assistance Discharge Recommendations PT Discharge Recommendations Home with Assistance, Outpatient PT Transportation Needs at Discharge Private Vehicle
--- NOTE | 2019-11-08 11:18 | PC.NURSE ---
DISCHARGE: PATIENT'S PAIN IS WELL CONTROLLED, [place] DRSLee CDI. CMS INTACT, VSS. PATIENT SHOWERED, AMB IN SIMS W/ PHYSICAL THERAPY. CLEARED FOR DC HOME. DR. DANIELS CAME IN TO SEE PATIENT. PATIENT CONFIRMS UNDERSTANDING OF ALL DC HOME INSTRUCTIONS AND PAPERWORK. LEFT BY WC WITH GRID CASTER ESCORT AND HIS RIDE HOME IN NO S/SX'S OF DISTRESS.
--- NOTE | 2019-11-09 09:06 | CM.DANOTE ---
Discharge Planning/Care Management Late entry: DCP: assessment: case received 11/07, EMR reviewed and discussed case in Team Rounds. A dc to home order was noted and PT stated they had worked with pt and would see her again but that pt was doing well for home plan with friend's supportive assist Pt is a 49 year old male who admitted for a scheduled RTHA: Surgeon: Dr. Jony Garcia Payer: JALEN/Fernando Garcia did come in and cleared pt for dc. A check in later showed that pt did leave for home in company of friend before Rounding process was completed. No d/c concerns were noted by the care team members. CM Discharge Assessment Start: 11/09/19 09:05 Freq: Status: Discharge Protocol: Document 11/09/19 09:05 ITV (Rec: 11/09/19 09:06 ITV [id number]) Discharge Planning Assessment Advance Directives? No History Provided By Medical Record Prior Living Arrangements House Household Members none Discharge Plan Home Pre-Anesthesia Assessment Start: 11/06/19 07:45 Freq: Status: Complete Protocol: Document 11/06/19 07:45 CAB (Rec: 11/06/19 07:51 CAB [id number]) Pre-Anesthesia Assessment PAC Comment Left hip arthroplasty 07/04/19, pt declined PAC call for this surgery, chart review only. Patient Information Reviewed Via Chart Review Comment Last labs @ [facility] 06/16/19, COVID screen @ [facility] 11/04/19 Negative Primary Care Provider Laly Bauer Seen Specialist in Last 12 Months Yes Specialist Seen Orthopedist Primary Language Bangladeshi Preferred Language Bangladeshi Hold Worker Required No Height 172.72 cm Weight 81.647 kg Body Mass Index (BMI) 27.3 Hearing Ability Normal Visual Impairment No Limitations Visual Assist None Dentition Type Teeth, Natural Present Barriers to Learning None Other Aids No Hx Anesthesia Reactions No Hx Family Anesthesia Reaction No Hx Malignant Hyperthermia No Hx Blood Transfusions No Anesthesia Review Requested No Pulmonology Technician No alcohol intake current alcohol intake frequency a few times a week Smoking Status Former smoker Tobacco type cigarettes how long ago did patient quit smoking Quit 2000 Substance Use Type does not use Pain Present Pain Reported Musculoskeletal Symptoms Abnormal Gait,Difficulty Walking,Joint Pain,Limited Range of Motion,Muscle Weakness History of Falling (Recent or History of No ) Patient is completely paralyzed or No completely immobile Mental Status Oriented to own ability Is patient on oxygen? No Does patient have GREEN/SOB No Hx Sleep Apnea Yes: Pt states mild, CPAP did not improve CPAP/BIPAP use prescribed not used Currently Taking a Beta Ganesh No Can You Climb a Flight of Stairs Without Yes SOB Hx Chest Pain No Hx SOB No Hx Syncope or Dizziness No Anti-Coagulant Therapy No Has a Bleach Plant Operator No Cardiac Testing No Hx Pacemaker/ICD No Pacemaker Rep Required? No Cardiac Clearance Received Not Applicable Diet Type At Home Regular dysphagia No Gastrointestinal Symptoms Reflux Urinary Catheter Present No Hx Urinary Self Catheterization No Diabetes No HgbA1C 6.0 Date 06/16/19 Hx Drug Resistant Organism No Presence of External or Internal Medical No Devices Have you had any close contact with Unknown someone diagnosed with COVID-19? Marital Status Single Lives With none Prior Living Arrangements House Number of Floors (Floors) One Floor Support System Family Patient Discharge Plan Description Return Home Feels Safe in Current Environment Yes Been Physically Hurt or Threatened By a No Person in Current Environment Do you have thoughts of harming yourself None or others? Are you currently considering suicide? No Do you have a plan to hurt yourself or No Plan others? Do You Have Any Spiritual Beliefs That No May Affect Your HC Choices? Do You Have Any Cultural Practices That No May Affect Your HC Choices? Who Can We Speak to About Patient's Care Family, friends Identifying Code for Release of Patient Declines to issue Information Health Care Proxy/Next of Kin Emily (sister) Health Care Proxy Emergency Contact Name Fran Swanson (friend) Emergency Contact Advance Directives? No Power of Sandfill Operator No
== END 2019-11-08 11:22 | disposition home or self-care (01) | DRG 470 ==
PROVIDERS: Admitting Provider Orthopaedic Surgery; PCP Family Medicine Addiction Medicine; Referring Provider Family Medicine Addiction Medicine; Visit Provider Orthopaedic Surgery
PROC: 0SR906A Replacement of Right Hip Joint with Oxidized Zirconium on Polyethylene Synthetic Substitute, Uncemented, Open Approach (ICD-10-PCS; CPT 27130; principal; 2019-11-07 07:45)
DX: M87.051 Idiopathic aseptic necrosis of right femur (principal); I10 Essential (primary) hypertension; Z96.642 Presence of left artificial hip joint; R33.9 Retention of urine, unspecified
CPT/HCPCS: 36415; 73502; 76000; 85014; 85018; 97116; 97161; C1776; C9290; J0690; J1100; J2250; J2274; J2405; J2704; J3010

== ENCOUNTER → 2022-07-07 15:13 | Outpatient (CLI) | payer BC, OTHER, SELFPAY ==
[2019-11-07 12:40] VITALS: BMI 22.6
--- NOTE | 2022-07-07 15:18 | DI.CT.S_ITS ---
PROCEDURE: CT CHEST WO CON INDICATIONS: CHECK FOR NODULES TECHNIQUE: Noncontrast 2.0-2.5 mm thick sections acquired from the pulmonary apices to the posterior costophrenic angles. 7 mm thick axial MIP and 5 mm coronal and sagittal reformats were then acquired. A low radiation dose technique was utilized. COMPARISON: None. FINDINGS: Image quality: Diagnostic, given the low radiation dose technique. Lungs and pleura: Subtle scattered ground-glass radiopacities are present within the bilateral lung bases and within the anterior left upper lobe. A lobulated 7 mm pulmonary nodule is present within the right lower lobe (series 3/image 224). No other pulmonary nodules or suspicious pulmonary lesions. Mediastinum: Heart size is normal. No pericardial effusion. No mediastinal adenopathy by size criteria. Thoracic aorta and central pulmonary arteries are normal in size. Esophagus is normal in caliber. No hiatal hernia. Bones and chest wall: No suspicious bony lesions. No vertebral body compression fractures. No axillary or supraclavicular adenopathy by size criteria. Thyroid gland is unremarkable . Abdomen: Visualized upper abdomen solid organs and bowel loops appear normal in the absence of contrast. IMPRESSION: 1. Multifocal ground-glass pulmonary radiopacities. Six-month follow-up recommended. 2. 7 mm pulmonary nodule. Six-month follow-up recommended. Fleischner Society criteria for SOLID lung nodule followup. Nodule size (mm)Low-risk patientHigh-risk patient<6 (single or multiple)No routine followup.Optional CT at 12 months. 6-8 (single or multiple)CT at 6-12 months, then optional CT at 18-24 mo.CT at 6-12 months, then CT at 18-24 months. >8 (single)CT at 3 months, PET-CT, or biopsy. Same as for low-risk pts. >8 (multiple)CT at 3-6 months, then optional CT at 18-24 mo.CT at 3-6 months, then CT at 18-24 months. Fleischner Society criteria for SUB-SOLID lung nodule followup. Solitary pure ground-glass nodules<6 mm (ground glass or part solid)No followup needed. 6 mm or larger (ground glass)CT at 6-12 months to confirm persistence, then CT every 2 years until 5 years.6 mm or larger (part solid)CT at 3-6 months to confirm persistence, then annual CT until 5 years if unchanged and solid component remains <6 mm. Multiple sub-solid nodules<6 mmCT at 3-6 months, then CT consider at 2 & 4 years for high risk patients. [address] at 3-6 months. Subsequent management based on most suspicious lesions. Recommendations do not apply to lung cancer screening, patients with immunosuppression, or patients with known primary cancer. Dictated by: Danae Hay M.D. on 07/07/2022 at 16:26 Approved by: Danae Hay M.D. on 07/07/2022 at 16:33
--- NOTE | 2022-07-07 15:18 | DI.CT.S_ITS ---
PROCEDURE: CT SINUS SCREEN WO CON INDICATIONS: Cough TECHNIQUE: Noncontrast 3.0 mm axial images acquired from the frontal sinuses to the mid-sella, with coronal and sagittal reformats. For radiation dose reduction, the following was used: automated exposure control, adjustment of mA and/or kV according to patient size. COMPARISON: [facility], CT, CT CHEST WO CON, 07/07/2022, 15:40. None. FINDINGS: Image quality: Excellent. Maxillary Sinuses: No bony remodeling or destruction. There is a mucous retention cyst seen along the inferior aspect of the right maxillary sinus. Minimal to mild mucosal thickening can be seen along the inferior aspects of both maxillary sinuses. Ethmoid Air Cells: No bony remodeling or destruction. Sinuses are clear. Sphenoid Sinuses: No bony remodeling or destruction. Sinuses are clear. Frontal Sinuses: No bony remodeling or destruction. Sinuses are clear. Ostiomeatal Complexes: The ostiomeatal complexes are patent, yet they are constitutionally narrowed, with bilateral Ana cells. Miscellaneous: Visualized intra-orbital contents are normal. 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 There is moderate rightward nasal septal deviation, with a rightward directed bony nasal septal spur. IMPRESSION: Focal maxillary sinus disease seen. The ostiomeatal complexes are patent, yet they are constitutionally narrowed, with bilateral Ana cells. Additional findings: Right-sided diogenes bullosa Moderate rightward nasal septal deviation Dictated by: Xavier Michelle M.D. on 07/07/2022 at 15:36 Approved by: Xavier Michelle M.D. on 07/07/2022 at 15:38
== END ==
PROVIDERS: PCP Family Medicine Addiction Medicine; Referring Provider Family Medicine Addiction Medicine; Visit Provider Family Medicine Addiction Medicine
DX: R91.8 Other nonspecific abnormal finding of lung field (principal)
CPT/HCPCS: 70486; 71250